=== PATIENT | female | born 1990 | race Hispanic/Latino ===

== ENCOUNTER 2020-08-30 08:21 | Outpatient (CLI) | payer OTHER ==
--- NOTE | 2020-08-30 08:54 | ULT ---
OB ULTRASOUND: HISTORY: anatomy FINDINGS: A single live intrauterine gestation is seen with measurements corresponding to an estimated gestatio nal age of 21 weeksand DMITRI at 01/10/2021. The estimated weight measures 406 g or 14 ounces biometry: BPD: 4.78 cm, 20 weeks 4 days HC: 17.66 cm, 20 weeks 2 days AC: 16.07 cm, 21 weeks 2 days FL: 3.64 cm, 21 weeks 4 days heart rate: 153bpm Placenta: Anterior Placenta previa: No CELY: 17.4cm Cervical length: 5cm A three-vessel cord, cord insertion, kidneys, urinary bladder, stomach, 4 chambered heart, late ral ventricles, cerebellum, spine, lips/nose, upper and lower extremities are visualized. No definite anomalies are seen. IMPRESSION: Single live intrauterine gestation of 21 weeksestimated gestational age and DMITRI at 01/10/2021
== END 2020-08-30 08:22 | disposition home or self-care (01) ==
LOC: BICULT 08:21
PROVIDERS: ATTEND Family Medicine
DX: Z34.81 Encounter for supervision of other normal pregnancy, first trimester (principal)
CPT/HCPCS: 76805